=== PATIENT | male | born 1985 | race Caucasian/White ===

== ENCOUNTER 2019-07-06 18:45 | Emergency (ER) | payer BC ==
[~2019-07-06] VITALS: Ht 180.3 cm; Wt 127.0 kg
[2019-07-06] MEDS ORDERED: OSEL75CA PO (22:31)
[2019-07-06] MEDS ORDERED: PROMETH-CODEIN 65 ML PO (22:32)
[2019-07-06] MEDS ORDERED: MUCINEX1200 MG PO (22:32)
== END 2019-07-06 23:14 | disposition home or self-care (01) ==
LOC: ER 18:45
DX: J11.1 Influenza due to unidentified influenza virus with other respiratory manifestations (principal)